=== PATIENT | female | born 1930 | race Caucasian/White ===

== ENCOUNTER 2016-12-20 10:15 | Inpatient (IN) ==
--- NOTE | 2016-12-19 20:42 | Discharge Summary ---
<AnnamariasarahAlicia - Last Filed: 12/19/16 20:38> Date of Encounter: 12/19/16 - Discharge Diagnosis (1) Arthritis of knee, right Priority: Primary Status: Acute (2) HTN (hypertension) Priority: Secondary Status: Chronic Qualifiers: Hypertension type: essential hypertension Qualified Code(s): I10 - Essential (primary) hypertension (3) Pacemaker Priority: Secondary Status: Chronic (4) ASCVD (arteriosclerotic cardiovascular disease) Priority: Secondary Status: Chronic - Discharge Medications Home Medications: HYDROcodone/Acet 5/325 mg [[place] 5-325 mg] 1 tab PO Q6H PRN #10 tab 06/29/16 [Rx ] Aspirin Enteric Coated [Aspirin EC] 325 mg PO DAILY #21 tablet.dr 12/19/16 [Rx] OxyCODONE Immed Rel [Roxicodone 5 MG] 5 - 10 mg PO Q6HR PRN #40 tablet 12/19/16 [Rx] Amlodipine Besylate 10 mg PO DAILY 12/20/16 [History] Aspirin 81 mg PO DAILY 12/20/16 [History] Cholecalciferol (D-3) [Vitamin D] 5,000 unit PO DAILY 12/20/16 [History] CloNIDine HCl 0.1 mg PO QPM 12/20/16 [History] Diazepam [Valium] 5 mg PO BID PRN 12/20/16 [History] Flaxseed/Omega3,6,9/Fatty Acid [Flax Seed Oil 1,300 mg Softgel] 1 each PO DAILY 12/20/16 [History] Folic Acid 1 mg PO DAILY 12/20/16 [History] Glucosamine Sulfate Dipot Chlr [Glucosamine] 1,000 mg PO DAILY 12/20/16 [History ] Multivitamin [One Daily Essential] 1 each PO DAILY 12/20/16 [History] [place]-3/Dha/Epa/Fish Oil [[place] 3 500 Softgel] 1 each PO DAILY 12/20/16 [History ] Ubidecarenone/Vit E Acetate [Co Q-10 100 mg Softgel] 1 each PO DAILY 12/20/16 [ History] Vit A/Vit C/Vit E/Zinc/Copper [Preservision Areds Tablet] 1 each PO DAILY [History] Allergies/Adverse Reactions: Allergies Iodinated Contrast Media - Oral and [Iodinated Contrast Media - IV Dye] Allergy (Verified 12/20/16 12:46) Difficulty Breathing Penicillins Allergy (Verified 12/20/16 12:46) Swelling of Lip/Tongue/Throat Primary care physician: Benson Borja MD - Patient Status Disposition: Transfer Inpatient Rehab Fac Condition: Good - Discharge Instructions Follow Up With: Sj Shin MD [Partnered Physician] - 01/18/17 10:05 am Alicia Rahman PAC [Physician Coding Support Specialist] - 12/30/16 10:15 am Benson Borja MD [Primary Care Provider] - 01/06/17 3:00 pm Drake Dorado MD [Partnered Physician] - 02/16/17 1:00 pm - Hospital Course Hospital course: Ms. Silva is a 86 year old female - Time Spent with Patient Total time spent providing and/or coordinating discharge services: <Sj Shin - Last Filed: 12/22/16 12:23> Date of Encounter: 12/22/16 Time of Encounter: 12:23 - Discharge Diagnosis (1) Arthritis of knee, right Priority: Primary Status: Acute (2) ASCVD (arteriosclerotic cardiovascular disease) Priority: Secondary Status: Chronic (3) HTN (hypertension) Priority: Secondary Status: Chronic Qualifiers: Hypertension type: essential hypertension Qualified Code(s): I10 - Essential (primary) hypertension (4) Pacemaker Priority: Secondary Status: Chronic (5) Acute blood loss anemia Priority: Primary Status: Acute Primary care physician: Benson Borja MD - Patient Status Functional capacity at discharge: uses cane/walker Overall status at discharge: patient is progressing back to baseline - Hospital Course Hospital course: Ms. Silva is a 86 year old female The patient had an uneventful postoperative course. They received antibiotics and physical therapy and were discharged in stable condition. There will follow -up in the office in 2 weeks. Aspirin DVT prophylaxis - Time Spent with Patient Total time spent providing and/or coordinating discharge services:
--- NOTE | 2016-12-20 10:27 | History & Physical Report ---
Date of Encounter: 12/20/16 Time of Encounter: 10:26 24 Hour HP Update - Instructions Instructions: If the History and Physical is less than 30 days old and was completed prior to A.M. admission and or procedure and has NOT been updated on calendar day of procedure please complete this update prior to performing procedure. - Update Patient reports changes in Medical Condition: No Changes in assessment/condition: No Changes in Medication: No Preop tests/diagnostics Reviewed: Yes Surgery Remains Indicated: Yes Consent for Planned Operative Procedure(s) Verified: Yes - Pre-Operative Checklist Preoperative Checklist Indicated: No Prophylactic Antibiotic Ordered: Yes Is VTE Prophylaxis Indicated?: Yes
[2016-12-20] MEDS ORDERED: CeFAZolin Pre 2,000 MG/100 ML 2,000 MG/100 ML BAG IVPB ONE (11:10)
[2016-12-20] MEDS ORDERED: Ringers Solution, Lactated 1,000 ML IVC SCH ×2 (11:15→15:18)
[2016-12-20] MEDS ORDERED: Clindamycin 900 MG/50 ML 900 MG/50 ML IV.SOLN IVPB ONE (11:21)
[2016-12-20] MEDS ORDERED: Famotidine 20 MG/2 ML VIAL IVP ONE (11:23)
[2016-12-20] MEDS ORDERED: Acetaminophen IV 1,000 MG/100 ML INFUS..BTL IVPB ONE (11:24)
[2016-12-20] MEDS ORDERED: *HR* Labetalol 100 MG/20 ML MDV IVP PRN (11:31)
[2016-12-20] MEDS ORDERED: *HR* Promethazine 25 MG/ML VIAL IVP PRN (11:31)
--- NOTE | 2016-12-20 11:59 | Anesthesia Evaluation PreOp ---
Date of Encounter: 12/20/16 Time of Encounter: 12:00 - Past History Planned Operation: Rt TKA Cardiac History: HTN, Hyperlipidemia, Arrhythmia, Pacemaker/ICD (Pacemaker for Sick Sinus Syndrome...last interrogated ), Other (CAD) Pulmonary History: Denies Any Significant HX TRANSPLANT COORDINATOR History: Denies Any Significant HX Other Medical History: Other (OA) Anesthesia History: No Prior Anesthetic Complications : No Alcohol Use: none Drug use: none Medications and Allergies HYDROcodone/Acet 5/325 mg [[place] 5-325 mg] 1 tab PO Q6H PRN #10 tab 06/29/16 [Rx ] Amlodipine [Norvasc] 5 mg PO DAILY 09/22/16 [History] ClonazePAM [Klonopin] 1 mg PO 09/22/16 [History] Aspirin Enteric Coated [Aspirin EC] 325 mg PO DAILY #21 tablet. 12/19/16 [Rx] OxyCODONE Immed Rel [Roxicodone 5 MG] 5 - 10 mg PO Q6HR PRN #40 tablet 12/19/16 [Rx] Allergies Iodinated Contrast Media - Oral and [Iodinated Contrast Media - IV Dye] Allergy (Verified 09/22/16 13:53) Difficulty Breathing Penicillins Allergy (Verified 09/22/16 13:53) Swelling of Lip/Tongue/Throat - Meds/Allergy Pre-op Review Medications Reviewed: Yes Allergies Reviewed: Yes Beta Blockers on Current Med List: No Anesthesia Results - Labs Laboratory Tests 12/09/16 12/09/16 12/09/16 15:56 15:56 15:56 Hgb 13.5 Hct 39.6 Plt Count 191 PT 11.1 INR 1.0 Sodium 140 Potassium 3.6 BUN 13 Creatinine 0.91 - Imaging EKG: report reviewed (Atrial Pacemaker) Additional studies: LVEF 60% Anesthesia Exam O2 Sat Height 1.52 m Height 1.52 m Height 1.52 m Weight 69.853 kg Weight 69.853 kg Weight 69.853 kg O2 Sat by Pulse Oximetry 94 O2 Sat by Pulse Oximetry 94 Vital Signs Temp Pulse Resp BP Pulse Ox 98.0 F 60 18 162/88 94 L 12/20/16 11:00 12/20/16 11:00 12/20/16 11:00 12/20/16 11:00 02/06/17 11:00 Height: 5'0 Weight: 150 lbs NPO (# of Hours): MN Pain Scale: 0 - HEENT Pupil (Motor): Pupils equal, EOMI Mallampati: III Teeth: Edentulous Denture Type: Upper: Complete Oral Opening: Less than or equal to 3 - TRANSPLANT COORDINATOR LOC: Oriented TRANSPLANT COORDINATOR Motor: Normal RUE, Normal LUE, Normal RLE, Normal LLE, Normal Face TRANSPLANT COORDINATOR Sensory: Normal: RUE, LUE, RLE, LLE, Face - Cardiac Rhythm: Regular Murmur: None JVD: No Carotid Bruit: No - Pulmonary Breath Sounds: bilateral Clear Respiratory Effort: Symmetrical Anesthesia Assess/Plan ASA Score: 3 (HTN Pacemaker) Modified [place] Scale for Level of Consciousness: Cooperative, oriented, and tranquil Anesthetic Plan: General, Regional Monitoring Plan: Standard Monitors Recovery Plan: PACU (Discussed GA and RA, agrees to proceed)
[2016-12-20] MEDS ORDERED: *HR* Succinylcholine 200 MG/10 ML VIAL IVP ONE (12:13)
[2016-12-20] MEDS ORDERED: *HR* FentaNYL (PF) 100 MCG/2 ML VIAL ONE (12:13)
[2016-12-20] MEDS ORDERED: *HR* Propofol 200 MG/20 ML VIAL IVP ONE (12:13)
[2016-12-20] MEDS ORDERED: Dexamethasone 4 MG/ML VIAL ONE (12:13)
[2016-12-20] MEDS ORDERED: Ondansetron 4 MG/2 ML VIAL ONE (12:13)
[2016-12-20] MEDS ORDERED: Lidocaine -MPF 2% 2 ML VIAL ONE (12:13)
[2016-12-20] MEDS ORDERED: Lidocaine -MPF 4% 5 ML AMPUL ONE (12:13)
[2016-12-20] MEDS ORDERED: Tetracaine/PF 20 MG/2 ML AMPUL SPINA ONE (12:25)
--- NOTE | 2016-12-20 13:28 | Anesthesia Procedures ---
Date of Encounter: 12/20/16 Time of Encounter: 11:55 Procedures: Anesthesia - Nerve Block Procedure Date: 12/20/16 Time: 12:45 Pre-op Diagnosis: Rt Knee Arthropathy Surgical Procedure: RT TKA Checklist: Correct Patient Identifier Correct side: Right Blood Thinner: No Monitor Applied: EKG, BP, Pulse Oximetry Supplemental Oxygen via Nasal Cannula (L/min): 2 Sedation: Versed (mg): 2 Sedation: Fentanyl (mcg): 100 Indication: Post Op Analgesia Pre-op Neuro Deficits: No Block Type: Femoral, Other (iPAC Block) Catheter placed: No Depth at skin (cm): 2 Sterile Technique: Yes Ultrasound used: Yes Anatomy identified: Yes Visual spread of Local: Yes Neuro Stimulation: Yes Nerve Stimulator Range: >0.4 - 0.6 mA Blood on Needle Aspiration: No Smooth Injection of Local: Yes Pain with Injection of Local: No Prep: Chlorhexadine Needle: 22 x 50 mm Stimuplex Local: Tetracaine (20), Other (0.5% Bupivacaine) Volume (cc): 30 Number of Attempts: 1 Complications: None/effective block Vitals: Vital Signs/O2 Sat/Glucose, Most Current Temp Pulse Resp BP Pulse Ox 12/20/16 12:46 60 15 163/72 98 12/20/16 12:15 61 16 175/86 98 12/20/16 11:13 98.0 F 60 18 162/88 94 L 12/20/16 11:00 98.0 F 60 18 162/88 94 L
--- NOTE | 2016-12-20 13:34 | Orthopedic Operative Note ---
Date of procedure: 12/20/16 Pre-op diagnosis: Right knee arthritis Post-op diagnosis: same Procedure: Procedure: Right Total knee replacement Estimated blood loss: 200 cc Hardware: Arthrex Femur: 4 Tibia: 4 PS insert: 12 Patella: 37 Exam Under anesthesia: Full range of motion no instability Procedural Notes: Grade 4 arthritic changes medial compartment patellofemoral joint Operative procedure: The patient was brought to the operating room and placed on the operating room table. After general anesthesia was administered the operative knee was examined. Findings were noted in the exam under anesthesia. The operative extremity was prepped and draped in sterile surgical fashion. The patient received IV antibiotics prior to skin incision. A standard midline incision was made centered over the patella. The incision was made through the skin and subcutaneous tissue. A medial parapatellar tendon approach was performed. Care was taken to preserve tissue along the medial aspect of the patella. And to protect the patella tendon. The deep MCL was released off the medial tibia. The infra patella fat pad was excised. Knee was brought into flexion. Patient noted to have grade 4 arthritic changes medial compartment patellofemoral joint. The entry hole was made for the intramedullary femoral guide. The guide was seated in 6 degrees of valgus. Anterior cut was made followed by the distal cut. The ACL the PCL the medial and the lateral menisci were excised. The tibia was subluxed forward. The entry hole was made for the intramedullary tibial guide. Guide was seated to resect 2 mm off the more abnormal side. The knee was brought into flexion the distal femur was sized to a 4. The femoral guide was seated, the anterior cut was made followed by the posterior condylar cut, followed by the chamfer cuts. The finishing guide was seated the box cut was made and the lug holes were drilled. The tibia was sized to a 4, the tibial tray was seated and prepared with the large drill followed by the fin cutter. Trial reduction revealed full extension no varus valgus instability with the appropriate 12 PS Latoya. The patella was everted and cut was made at the level of the insertion of the quadriceps and patella tendon. The patella was sized to a 37 the guide was seated and the lug holes are drilled. Trial reduction revealed excellent patella tracking. All trial components were removed all bony surfaces were irrigated. The tibia was cemented first followed by the femur. The 12 PS Latoya was seated and the knee was brought into full extension. The patella was cemented and held in place with the patellar holding clamp. After the cement had hardened, the knee sat for 2 minutes with a Betadine saline solution. The knee was then irrigated out with 2 L of pulse irrigation. The extensor mechanism was closed with #2 FiberWire suture and #2 PDS suture. The subcutaneous tissue was then irrigated and closed deep with #1 PDS suture superficially with 0 PDS suture and skin was closed with skin radha and Dermabond. The patient was then placed in a sterile dressing and a postoperative brace extubated and transferred to recovery room in stable condition. Anesthesia: NICO Surgeon: Sj Shin Gwot Ia[employer] Support: Alicia Rahman Condition: stable Disposition: PACU
[2016-12-20] MEDS ORDERED: *HR* HYDROmorphone (PF) 1 MG/ML SYRINGE ONE (14:16)
[2016-12-20] MEDS: *HR* HYDROmorphone (PF) 1 MG/ML SYRINGE IVP PRN ×2 (14:20→14:30)
[2016-12-20 14:46] LABS: Hematocrit 33.1 % (35.3-44.9); Hemoglobin 11.1 g/dL (11.5-15.4)
[2016-12-20] MEDS ORDERED: Sennosides 8.6 MG TABLET PO PRN (15:18)
[2016-12-20] MEDS ORDERED: Albuterol Neb 1.25 MG/3 ML VIAL IH ONE (15:18)
[2016-12-20] MEDS ORDERED: Naloxone 0.4 MG/ML INJ IVP PRN (15:18)
[2016-12-20] MEDS ORDERED: *HR* HYDROmorphone (PF) 1 MG/ML SYRINGE IVP PRN (15:18)
[2016-12-20] MEDS ORDERED: *HR* OxyCODONE Immed Rel 5 MG TABLET PO PRN (15:18)
[2016-12-20] MEDS ORDERED: Ondansetron 4 MG/2 ML VIAL IVP PRN (15:18)
[2016-12-20] MEDS ORDERED: MOM Conc 10 ML UD.LIQ PO PRN (15:18)
[2016-12-20] MEDS ORDERED: Temazepam 15 MG CAPSULE PO PRN (15:18)
[2016-12-20] MEDS ORDERED: Acetaminophen 325 MG TABLET PO PRN (15:18)
--- NOTE | 2016-12-20 16:00 | Anesthesia Evaluation Post Op ---
Date of Encounter: 12/20/16 Time of Encounter: 15:15 - Vital Signs Vital Signs: Vital Signs/O2 Sat/Glucose, Most Current Temp Pulse Resp BP Pulse Ox 12/20/16 15:18 97.6 F 60 16 176/93 98 12/20/16 14:51 97.8 F 59 16 169/89 99 12/20/16 14:41 59 16 155/74 99 12/20/16 14:31 97.1 F L 59 16 152/80 100 12/20/16 14:21 60 16 155/74 100 12/20/16 14:11 71 16 163/83 100 12/20/16 14:01 97.8 F 63 16 153/84 99 12/20/16 12:46 60 15 163/72 98 12/20/16 12:15 61 16 175/86 98 - Lungs Lungs: Clear Ascult./Percussion - Airway Airway: Non-obstructed - Cardiovascular Baseline Rhythm - Mental Status Mental Status: Alert & Oriented, Answers Appropriately - Pain Pain Scale: 0 - Nausea Vomiting Nausea Vomiting: Not Present - Hydration Hydration: Ice chips - Discharge PostOp Status: Transfer Patient to floor
[2016-12-20] MEDS: Clindamycin 900 MG/50 ML 900 MG/50 ML IV.SOLN IVPB SCH ×2 (16:17→23:35)
[2016-12-20] MEDS ORDERED: *HR* Enoxaparin 30 MG/0.3 ML SYRINGE SQ SCH (18:00)
[2016-12-20] MEDS: *HR* Enoxaparin 30 MG/0.3 ML SYRINGE SQ SCH (19:17)
[2016-12-20] MEDS: cloNIDine HCl 0.1 MG TABLET PO SCH (21:13)
[2016-12-20] MEDS: *HR* OxyCODONE Immed Rel 5 MG TABLET PO PRN (22:12)
[2016-12-21] MEDS: *HR* Enoxaparin 30 MG/0.3 ML SYRINGE SQ SCH ×2 (05:03→18:06)
[2016-12-21 06:23] LABS: Hematocrit 30.8 % (35.3-44.9); Hemoglobin 10.4 g/dL (11.5-15.4)
--- NOTE | 2016-12-21 06:27 | Orthopedics Progress Note ---
Date of Encounter: 12/21/16 Time of Encounter: 06:26 - Assessment and Plan (1) Arthritis of knee, right Current Visit: Yes Status: Acute (2) ASCVD (arteriosclerotic cardiovascular disease) Current Visit: Yes Status: Chronic (3) HTN (hypertension) Current Visit: Yes Status: Chronic Qualifiers: Hypertension type: essential hypertension Qualified Code(s): I10 - Essential (primary) hypertension (4) Pacemaker Current Visit: Yes Status: Chronic Subjective Interval history: Patient was seen this morning doing well without complaints. Afebrile vital signs stable. Operative extremity: Neurovascularly intact Dressing clean dry and intact Calves nontender Assessment and plan: Continue with postoperative care Hematocrit 30 Objective Vital signs: Vital Signs Temp Pulse Resp BP Pulse Ox 12/21/16 04:32 97.8 F 66 21 128/75 95 12/20/16 23:24 97.5 F L 60 14 119/76 95 12/20/16 20:13 97.5 F L 60 17 144/70 93 L 12/20/16 17:25 60 16 176/93 98 12/20/16 17:19 97.9 F 60 16 122/73 97 12/20/16 16:19 97.9 F 60 14 168/87 99 12/20/16 15:59 16 98 12/20/16 15:18 97.6 F 60 16 176/93 98 12/20/16 14:51 97.8 F 59 16 169/89 99 12/20/16 14:41 59 16 155/74 99 12/20/16 14:31 97.1 F L 59 16 152/80 100 12/20/16 14:21 60 16 155/74 100 12/20/16 14:11 71 16 163/83 100 12/20/16 14:01 97.8 F 63 16 153/84 99 12/20/16 12:46 60 15 163/72 98 12/20/16 12:15 61 16 175/86 98 12/20/16 11:13 98.0 F 60 18 162/88 94 L 12/20/16 11:00 98.0 F 60 18 162/88 94 L Intake and Output 12/20/16 12/20/16 12/21/16 15:59 23:59 07:59 Intake Total 50 / 50 50 / 50 Output Total 200 / 200 Balance -200 / -200 50 / 50 50 / 50 Intake: IV Fluids 50 / 50 50 / 50 Cleocin 900 MG/50 ML 900 50 / 50 50 / 50 mg In 50 ml @ 50 mls/hr IVPB Q8HR MAGALI Rx#: [id number] Output: Estimated Blood Loss 200 / 200 Other: # Urine Diapers 1 Weight 69.853 kg - Labs CBC & BMP: 12/21/16 05:36 Labs: Abnormal lab results Hgb 10.4 g/dL (11.5-15.4) L 12/21/16 05:36 Hct 30.8 % (35.3-44.9) L 12/21/16 05:36 - VTE Documentation of Mechanical Device: Venous foot pump, device Consult Discharge Plan - Plan Referrals: Benson Borja MD [Primary Care Provider] - 01/06/17 3:00 pm Drake Dorado MD [Partnered Physician] - 02/16/17 1:00 pm
[2016-12-21 06:36] LABS: BUN/Creatinine Ratio 17 (6-26); Blood Urea Nitrogen 13 mg/dL (7-20); Calcium 9.8 mg/dL (8.6-10.8); Carbon Dioxide 25 mEq/L (19-29); Chloride 107 mEq/L (98-109); Glucose 134 mg/dL (70-99); Osmolality,Calculated 288 (280-300); Potassium 4.2 mEq/L (3.5-4.5); Sodium 138 mEq/L (136-145); eGFR For African Americans > 60 (> 60); eGFR For Non-African Americans > 60 (> 60)
[2016-12-21] MEDS ORDERED: 0.9 % Sodium Chloride 1,000 ML IVC ONE (09:48)
[2016-12-21] MEDS: Cholecalciferol (D-3) 1,000 UNIT TABLET PO SCH (10:17)
[2016-12-21] MEDS: Folic Acid 1 MG TABLET PO SCH (10:18)
[2016-12-21] MEDS: Aspirin 81 MG TAB.CHEW PO SCH (10:18)
[2016-12-21] MEDS: Multivit/Ca/Min/Fe/FA 1 TAB TABLET PO SCH (10:18)
[2016-12-21] MEDS: FATTY ACID PO SCH (10:19)
[2016-12-21] MEDS: (Glucosamine Sulfate Dipot Chlr [Glucosamine] 1,000 M) PO SCH (10:19)
[2016-12-21] MEDS: (Vit A/Vit C/Vit E/Zinc/Copper [Preservision Areds Ta) PO SCH (10:19)
[2016-12-21] MEDS: EPA PO SCH (10:19)
[2016-12-21] MEDS: FISH OIL PO SCH (10:19)
[2016-12-21] MEDS: (Ubidecarenone/Vit E Acetate [Co Q-10 100 Mg Softgel]) PO SCH (10:19)
[2016-12-21] MEDS: OMEGA PO SCH (10:19)
[2016-12-21] MEDS: DHA PO SCH (10:19)
[2016-12-21] MEDS: cloNIDine HCl 0.1 MG TABLET PO SCH ×3 (10:19→21:15)
[2016-12-21] MEDS: OMEGA3 PO SCH (10:19)
[2016-12-21] MEDS: FLAXSEED PO SCH (10:19)
[2016-12-21] MEDS: amLODIPine 5 MG TABLET PO SCH (10:23)
[2016-12-21] MEDS: *HR* OxyCODONE Immed Rel 5 MG TABLET PO PRN ×2 (11:51→18:06)
[2016-12-21] MEDS: diazePAM 5 MG TABLET PO PRN ×2 (20:07→21:15)
[2016-12-22] MEDS: *HR* OxyCODONE Immed Rel 5 MG TABLET PO PRN (05:17)
[2016-12-22] MEDS: *HR* Enoxaparin 30 MG/0.3 ML SYRINGE SQ SCH (05:17)
[2016-12-22 06:11] LABS: Hematocrit 29.5 % (35.3-44.9); Hemoglobin 9.8 g/dL (11.5-15.4)
[2016-12-22 06:20] LABS: BUN/Creatinine Ratio 19 (6-26); Blood Urea Nitrogen 15 mg/dL (7-20); Calcium 10.3 mg/dL (8.6-10.8); Carbon Dioxide 23 mEq/L (19-29); Chloride 108 mEq/L (98-109); Glucose 113 mg/dL (70-99); Osmolality,Calculated 292 (280-300); Potassium 3.6 mEq/L (3.5-4.5); Sodium 140 mEq/L (136-145); eGFR For African Americans > 60 (> 60); eGFR For Non-African Americans > 60 (> 60)
--- NOTE | 2016-12-22 06:44 | Orthopedics Progress Note ---
Date of Encounter: 12/22/16 Time of Encounter: 06:44 - Assessment and Plan (1) Arthritis of knee, right Current Visit: Yes Status: Acute (2) ASCVD (arteriosclerotic cardiovascular disease) Current Visit: Yes Status: Chronic (3) HTN (hypertension) Current Visit: Yes Status: Chronic Qualifiers: Hypertension type: essential hypertension Qualified Code(s): I10 - Essential (primary) hypertension (4) Pacemaker Current Visit: Yes Status: Chronic Subjective Interval history: Patient was seen this morning doing well without complaints. Afebrile vital signs stable. Operative extremity: Neurovascularly intact Dressing clean dry and intact Calves nontender Assessment and plan: Continue with postoperative care hb 9.5 Objective Vital signs: Vital Signs Temp Pulse Resp BP Pulse Ox 12/22/16 04:33 98.1 F 86 16 138/93 92 L 12/22/16 00:48 98.5 F 74 15 133/58 94 L 12/21/16 20:24 99.0 F 78 16 134/72 92 L 12/21/16 14:00 98.7 F 85 16 144/66 93 L 12/21/16 10:26 120/50 12/21/16 09:06 97.6 F 60 99/50 98 12/21/16 06:56 98.0 F 62 16 103/67 93 L - Labs CBC & BMP: 12/22/16 05:40 12/22/16 05:40 Labs: Abnormal lab results Hgb 9.8 g/dL (11.5-15.4) L 12/22/16 05:40 Hct 29.5 % (35.3-44.9) L 12/22/16 05:40 Glucose 113 mg/dL (70-99) H 12/22/16 05:40 - VTE Documentation of Mechanical Device: Venous foot pump, device Consult Discharge Plan - Plan Referrals: Benson Borja MD [Primary Care Provider] - 01/06/17 3:00 pm Drake Dorado MD [Partnered Physician] - 02/16/17 1:00 pm
[2016-12-22] MEDS: Aspirin 81 MG TAB.CHEW PO SCH (08:24)
[2016-12-22] MEDS: Folic Acid 1 MG TABLET PO SCH (08:25)
[2016-12-22] MEDS: Cholecalciferol (D-3) 1,000 UNIT TABLET PO SCH (08:25)
[2016-12-22] MEDS: OMEGA3 PO SCH (08:25)
[2016-12-22] MEDS: FATTY ACID PO SCH (08:25)
[2016-12-22] MEDS: FLAXSEED PO SCH (08:25)
[2016-12-22] MEDS: (Glucosamine Sulfate Dipot Chlr [Glucosamine] 1,000 M) PO SCH (08:25)
[2016-12-22] MEDS: cloNIDine HCl 0.1 MG TABLET PO SCH (08:25)
[2016-12-22] MEDS: amLODIPine 5 MG TABLET PO SCH (08:25)
[2016-12-22] MEDS: Multivit/Ca/Min/Fe/FA 1 TAB TABLET PO SCH (08:25)
[2016-12-22] MEDS: OMEGA PO SCH (08:26)
[2016-12-22] MEDS: DHA PO SCH (08:26)
[2016-12-22] MEDS: (Ubidecarenone/Vit E Acetate [Co Q-10 100 Mg Softgel]) PO SCH (08:26)
[2016-12-22] MEDS: EPA PO SCH (08:26)
[2016-12-22] MEDS: (Vit A/Vit C/Vit E/Zinc/Copper [Preservision Areds Ta) PO SCH (08:26)
[2016-12-22] MEDS: FISH OIL PO SCH (08:26)
[2016-12-22 11:52] VITALS: BP 136/59
--- NOTE | 2016-12-22 15:59 | Discharge Summary ---
<Alicia Rahman - Last Filed: 01/02/17 20:27> Date of Encounter: 12/23/16 Time of Encounter: 15:57 - Discharge Diagnosis (1) Arthritis of knee, right Status: Acute (2) HTN (hypertension) Priority: Secondary Status: Chronic Qualifiers: Hypertension type: essential hypertension Qualified Code(s): I10 - Essential (primary) hypertension (3) Pacemaker Priority: Secondary Status: Chronic (4) ASCVD (arteriosclerotic cardiovascular disease) Priority: Secondary Status: Chronic - Discharge Medications Prescriptions: Diazepam [Valium] 5 mg PO BID PRN #6 tablet PRN Reason: Anxiety Home Medications: Aspirin Enteric Coated [Aspirin EC] 325 mg PO DAILY #21 tablet. 12/19/16 [Rx] OxyCODONE Immed Rel [Roxicodone 5 MG] 5 - 10 mg PO Q6HR PRN #40 tablet 12/19/16 [Rx] Amlodipine Besylate 10 mg PO DAILY 12/20/16 [History] Aspirin 81 mg PO DAILY 12/20/16 [History] Cholecalciferol (D-3) [Vitamin D] 5,000 unit PO DAILY 12/20/16 [History] CloNIDine HCl 0.1 mg PO QPM 12/20/16 [History] Flaxseed/Omega3,6,9/Fatty Acid [Flax Seed Oil 1,300 mg Softgel] 1 each PO DAILY 12/20/16 [History] Folic Acid 1 mg PO DAILY 12/20/16 [History] Glucosamine Sulfate Dipot Chlr [Glucosamine] 1,000 mg PO DAILY 12/20/16 [History ] Multivitamin [One Daily Essential] 1 each PO DAILY 12/20/16 [History] [place]-3/Dha/Epa/Fish Oil [[place] 3 500 Softgel] 1 each PO DAILY 12/20/16 [History ] Ubidecarenone/Vit E Acetate [Co Q-10 100 mg Softgel] 1 each PO DAILY 12/20/16 [ History] Vit A/Vit C/Vit E/Zinc/Copper [Preservision Areds Tablet] 1 each PO DAILY [History] Diazepam [Valium] 5 mg PO BID PRN #6 tablet 12/22/16 [Rx] Allergies/Adverse Reactions: Allergies Iodinated Contrast Media - Oral and [Iodinated Contrast Media - IV Dye] Allergy (Verified 12/20/16 12:46) Difficulty Breathing Penicillins Allergy (Verified 12/20/16 12:46) Swelling of Lip/Tongue/Throat Labs on day of discharge: Labs from last 24 hours 12/22/16 12/22/16 05:40 05:40 Hgb 9.8 L Hct 29.5 L Sodium 140 Potassium 3.6 Chloride 108 Carbon Dioxide 23 BUN 15 Creatinine 0.81 Est GFR ( Amer) > 60 Est GFR (Non-Af Amer) > 60 BUN/Creatinine Ratio 19 Glucose 113 H Calculated Osmolality 292 Calcium 10.3 - Impressions ITS Impressions Knee X-Ray 12/20/16 00:01 IMPRESSION: Expected postoperative changes status post right knee arthroplasty. D/ / 12/20/2016 16:10:21 José Miguel Liu MD / bcarter Interpreting Provider: José Miguel Liu MD Date of admission: 12/20/16 15:43 Primary care physician: Benson Borja MD Consults: 12/20/16 15:18 Consult to Occupational Therapy [CONS] Routine Comment: Evaluate, develop and implement POC Consult to Orthopedic Navigator [CONS] [CONS] Routine Consult to Physical Therapy [CONS] Routine Comment: Evaluate, develop and impliment POC Consult to Buckle Frame Shaper [CONS] Routine Reason for SW Consult: post op joint replacement RT Post Op Consult [CONS] Routine - Patient Status Disposition: Transfer Inpatient Rehab Fac Condition: Good Functional capacity at discharge: uses cane/walker Overall status at discharge: patient is back to baseline - Discharge Instructions Instructions: Chronic Hypertension (DC) Follow Up With: Sj Shin MD [Partnered Physician] - 01/18/17 10:05 am Alicia Rahman PAC [Physician Damage Prevention Coordinator] - 12/30/16 10:15 am Benson Borja MD [Primary Care Provider] - 01/06/17 3:00 pm Drake Dorado MD [Partnered Physician] - 02/16/17 1:00 pm - Hospital Course Hospital course: Ms. Silva is a 86 year old female - Time Spent with Patient Total time spent providing and/or coordinating discharge services: - VTE Documentation of Mechanical Device: Venous foot pump, device <Sj Shin - Last Filed: 01/03/17 06:46> - Discharge Diagnosis (1) Arthritis of knee, right Status: Acute (2) ASCVD (arteriosclerotic cardiovascular disease) Status: Chronic (3) HTN (hypertension) Status: Chronic Qualifiers: Hypertension type: essential hypertension Qualified Code(s): I10 - Essential (primary) hypertension (4) Pacemaker Status: Chronic (5) Acute blood loss anemia Status: Acute - Impressions ITS Impressions Knee X-Ray 12/20/16 00:01 IMPRESSION: Expected postoperative changes status post right knee arthroplasty. D/ / 12/20/2016 16:10:21 José Miguel Liu MD / bcarter Interpreting Provider: José Miguel Liu MD Date of admission: 12/20/16 15:43 Primary care physician: Benson Borja MD Consults: 12/20/16 15:18 Consult to Occupational Therapy [CONS] Routine Comment: Evaluate, develop and implement POC Consult to Orthopedic Navigator [CONS] [CONS] Routine Consult to Physical Therapy [CONS] Routine Comment: Evaluate, develop and impliment POC Consult to Buckle Frame Shaper [CONS] Routine Reason for SW Consult: post op joint replacement RT Post Op Consult [CONS] Routine - Patient Status Functional capacity at discharge: uses cane/walker Overall status at discharge: patient is back to baseline - Hospital Course Hospital course: Ms. Silva is a 86 year old female uneventful postop course ASA for dvt prophylaxis dc stable condition - Time Spent with Patient Total time spent providing and/or coordinating discharge services:
== END 2016-12-22 14:27 | DRG 470 ==
LOC: SAMDAY 10:15 → 3NENU 15:43
PROVIDERS: ADMIT Orthopaedic Surgery; ATTEND Orthopaedic Surgery